=== PATIENT | female | born 1955 | race Caucasian/White ===

== ENCOUNTER 2017-10-23 22:42 | Emergency (ER) | payer OTHER ==
[2017-10-23 23:00] VITALS: BP 138/77
--- NOTE | 2017-10-23 23:31 | ED Physician Documentation ---
Wrist Injury - HISTORIAN Historian: patient - HPI Stated Complaint: R wrist pain post fall Chief Complaint: Wrist Injury Additional Information: fell backwards outside 7 hrs ago. started hurting recently. took T3 at home. pain is medial wrist. no other complaints Onset: today Where: other Severity: mild Duration: persistent since Context: fall Location of Injury: R wrist Modifying Factors: pain on movement Further Comments: no - ROS CONST: no problems GI/: denies: problems urinating, nausea NEURO: none CVS/RESP: none LNMP: post-menopausal EYES/ENT: none MS/SKIN/LYMPH: none - PAST HX Past History: none Allergies/Adverse Reactions: Allergies Allergy/AdvReac Type Severity Reaction Status Date / Time No Known Allergies Allergy Verified 10/23/17 23:00 Home Medications: Ambulatory Orders Medication Instructions Recorded Omeprazole [Prilosec] 20 mg PO DAILY 11/23/12 Sertraline HCl [Zoloft] 100 mg PO DAILY u2 11/23/12 Acetaminophen with Codeine 1 each PO TID PRN 10/23/17 [Tylenol with Codeine #4 Tablet] - SOCIAL HX Smoking History: cigarettes Alcohol Use: none Drug Use: none - FAMILY HX Family History: none - VITAL SIGNS Vital Signs: Vital Signs Temp Pulse Resp BP Pulse Ox 98.2 F 98 H 16 138/77 100 10/23/17 22:45 10/23/17 22:45 10/23/17 22:45 10/23/17 22:45 10/23/17 22:45 - REVIEWED ASSESSMENTS Nursing Assessment Reviewed: Yes Vitals Reviewed: Yes Wrist Physical Exam - Physical Exam General Appearance: no acute distress, alert Hand: nml inspection, no evidence of FB Wrist: normal inspection, no evidence of injury, pain, soft tissue tenderness, tenderness. No: deformity, swelling Neuro: sensation nml, motor nml. No: digital nerve deficit Vascular: no vascular compromise Tendon: tendon function nml Forearm/Elbow/Arm: uninjured above wrist Skin: warm/dry Head/ENT: nml inspection Neck/Back: nml inspection Resp/CVS: no resp. distress Abdomen: non-tender ED Results Lab/Radiology - Radiology Radiology Impressions: no fracture - Orders Orders: ED Orders Category Date Time Status WRIST 3 VIEWS OR MORE [RAD] Stat Exams 10/23/17 Taken Discharge Clincal Impression: Right wrist sprain Qualifiers: Encounter type: initial encounter Qualified Code(s): S63.501A - Unspecified sprain of right wrist, initial encounter Osteoarthritis Qualifiers: Osteoarthritis location: wrist Osteoarthritis type: unspecified Laterality: right Qualified Code(s): M19.031 - Primary osteoarthritis, right wrist Fall Qualifiers: Encounter type: initial encounter Qualified Code(s): W19.XXXA - Unspecified fall, initial encounter Referrals: Melinda Alexandre MD [Primary Care Provider] - 2 Days Condition: Good Disposition: 01 HOME, SELF-CARE Decision to Admit: NO Date of Decison to Admit: 10/23/17 Decision Time: 23:33
--- NOTE | 2017-10-24 06:56 | Diagnostic Imaging Report ---
JARROD RICHARDSON [facility] [address] [facility].[address] [address] Report Submission Date: Oct 23, 2017 11:18:15 PM [employer] Patient Study Name: LUCIA MEDEL Date: Oct 23, 2017 11:03:50 PM [employer] Modality Type: CR Gender: F Description: UPPER EXTREMITY : 55 Institution: [facility] Physician: JARROD RICHARDSON 3 views of the right wrist Clinical history: RIGHT WRIST PAIN, FELL ON ICE Findings: Examination right wrist in palmar, lateral and oblique views fails to demonstrate evidence of fracture or dislocation. There are degenerative changes with narrowing of the radiocarpal and lateral intercarpal joints. Impression: 1. Degenerative changes. 2. No fracture. Electronically signed on Oct 23, 2017 11:18:15 PM [employer] by: Satish ZIEGLER
== END 2017-10-23 23:35 | disposition home or self-care (01) ==
LOC: ED 22:42
DX: S63.501A Unspecified sprain of right wrist, initial encounter (principal); M19.031 Primary osteoarthritis, right wrist; W19.XXXA Unspecified fall, initial encounter; Y92.9 Unspecified place or not applicable; Y99.9 Unspecified external cause status
CPT/HCPCS: 73110; 99283; L3908

== ENCOUNTER 2018-12-19 12:27 | Outpatient (CLI) | payer OTHER ==
[2018-12-19 12:50] LABS: BASOPHILS % 0.8 % (0.0-1.5); EOSINOPHILS % 1.3 % (0.0-6.8); MEAN CORPUSCULAR HEMOGLOBIN 24.4 pg (28.0-34.0); MONOCYTES % 6.3 % (0.0-11.0); NEUTROPHILS # 8.2 # k/uL (1.4-7.7)
[2018-12-19 13:25] LABS: eGFR (Non-African) > 60
[2018-12-20 15:23] LABS: RETIC ABSOLUTE COUNT SEE SCANNED RESULTS
== END 2018-12-19 12:29 ==
LOC: LAB 12:27
PROVIDERS: ATTEND Family Medicine
DX: D64.9 Anemia, unspecified (principal); R42 Dizziness and giddiness
CPT/HCPCS: 36415; 80053; 85025; 85045